=== PATIENT | female | born 1970 | race American Indian/Alaskan Native ===

== ENCOUNTER 2017-06-17 06:17 | Outpatient (CLI) | payer BC ==
--- NOTE | 2017-06-17 10:46 | Cat Scan Report ---
CT ABDOMEN AND PELVIS WITHOUT CONTRAST INDICATION: Hyperaldosteronism. COMPARISON: None similar at this institution. FINDINGS: Abdomen and pelvis CT performed following oral contrast only. LUNG BASES: Mild bibasilar atelectasis or scarring. Top normal heart size. Right hemidiaphragm slightly elevated. Slight nonspecific distal esophageal prominence/thickening. No effusions. ABDOMEN: Please note that sensitivity to detect small visceral lesions is limited due to the absence of intravenous contrast. Cholecystectomy clips. Right hepatic lobe approximately 18.5 cm in midclavicular length. Otherwise grossly unremarkable unenhanced liver, spleen, pancreas, adrenals and aorta. Slightly flattened IVC. Numerous tiny bilateral nonobstructing renal calculi measure up to 2 mm in size or smaller. No ascites or significant adenopathy. Opacified GI tract nonobstructive. Normal appendix. Mild stool throughout colon, admixed with oral contrast. Tiny fat containing umbilical hernia with a transverse neck of 6 mm. PELVIS: Uterus surgically absent. Few small pelvic phleboliths. Grossly unremarkable unopacified urinary bladder. Rectosigmoid stool. No free fluid or significant adenopathy. Mild spinal degenerative spurring at few levels. Mild bilateral SI joint sclerosis, more so along the iliac aspect. Mild hip degenerative changes, right greater than left as well. CONCLUSION: No acute CT abnormality on this unenhanced exam with various incidental findings, including nonobstructing bilateral nephrolithiasis, cholecystectomy and hysterectomy, amongst others, as above. Thank you for the opportunity to participate in this patient's care.
== END 2017-06-17 06:18 | disposition home or self-care (01) ==
LOC: CT 06:17
PROVIDERS: ATTEND Internal Medicine Nephrology
DX: E26.9 Hyperaldosteronism, unspecified (principal); J98.11 Atelectasis; J98.6 Disorders of diaphragm; N20.0 Calculus of kidney; K42.9 Umbilical hernia without obstruction or gangrene; I87.8 Other specified disorders of veins; M16.0 Bilateral primary osteoarthritis of hip; Z90.710 Acquired absence of both cervix and uterus; Z90.49 Acquired absence of other specified parts of digestive tract
CPT/HCPCS: 74176